=== PATIENT | male | born 1940 | race Caucasian/White ===

== ENCOUNTER 2018-04-17 06:13 | Inpatient (IN) ==
[2018-04-17] MEDS ORDERED: MAGNESIUM SULF RIDER 4 GM in PREMIX 1 EACH IV PRN (10:04)
[2018-04-17] MEDS ORDERED: ZALEPLON 5 MG CAPSULE PO PRN (10:04)
[2018-04-17] MEDS ORDERED: LACTULOSE 20 GM/30 ML UDCUP PO PRN (10:04)
[2018-04-17] MEDS ORDERED: DOCUSATE SODIUM 100 MG CAPSULE PO PRN (10:04)
[2018-04-17] MEDS ORDERED: MAGNESIUM SULF RIDER 2 GM in PREMIX 1 EACH IV PRN (10:04)
[2018-04-17] MEDS ORDERED: MORPHINE 4 MG/1 ML VIAL IV PRN (10:04)
[2018-04-17] MEDS ORDERED: POTASSIUM CHLORIDE RIDER 10 MEQ in PREMIX 1 EACH IV PRN (10:04)
[2018-04-17] MEDS ORDERED: BISACODYL 5 MG TABLET PO PRN (10:04)
[2018-04-17] MEDS ORDERED: NICOTINE 21 MG/24 HR PATCH TRANSDERM PRN (10:04)
[2018-04-17] MEDS ORDERED: ACETAMINOPHEN 325 MG TABLET PO PRN (10:04)
[2018-04-17] MEDS ORDERED: ONDANSETRON 4 MG/2 ML VIAL IV PRN (10:04)
[2018-04-17] MEDS ORDERED: diphenhydrAMINE CAP 25 MG CAPSULE PO PRN (10:04)
[2018-04-17] MEDS ORDERED: POTASSIUM CHLORIDE 20 MEQ TABLET PO PRN (10:19)
[2018-04-17] MEDS: NITROGLYCERIN SL 0.4 MG TABLET SL PRN ×2 (10:55→13:30)
[2018-04-17] MEDS: PANTOPRAZOLE 40 MG TABLET PO SCH (11:01)
[2018-04-17] MEDS ORDERED: GLUCAGON 1 MG VIAL IM PRN (13:11)
[2018-04-17] MEDS ORDERED: DEXTROSE 50% 25 GM/50 ML VIAL IV PRN (13:11)
[2018-04-17] MEDS: ENOXAPARIN 100 MG/ML SYRINGE SUBCUT SCH (14:32)
[2018-04-17] MEDS: DOBUTamine 500 MG/250 ML PREMIX IV SCH (14:32)
[2018-04-17] MEDS ORDERED: INSULIN REGULAR 100 UNIT/ML ONE (15:27)
[2018-04-17] MEDS: FUROSEMIDE 40 MG/4 ML VIAL IV SCH (15:53)
[2018-04-17] MEDS: INSULIN REGULAR 100 UNIT/ML SUBCUT SCH ×2 (15:53→22:33)
[2018-04-17] MEDS: NITROGLYCERIN 2% OINT 1 INCH/GM PACK TOP SCH ×2 (15:54→17:08)
[2018-04-17 20:35] LABS: Apearance,Urine CLEAR (Clear); Bilirubin,Urine Negative (Negative); Blood, Urine Negative (Negative); Glucose,Urine (UA) >=500 mg/dL (Negative); Ketones,Urine Negative (Negative); Mucus,Urine Many /LPF (Occasional); Nitrite,Urine Negative (Negative); Protein,Urine Negative; RBC,Urine 1 /HPF (0-4); Squamous Epithelial Cell,Urine Occasional /HPF (0-10); Urine Color Yellow (Yellow); Urine Specific Gravity 1.015 (1.001-1.035); WBC,Urine 1 /HPF (0-6)
[2018-04-17] MEDS: SACUBITRIL/VALSARTAN 49-51 MG TABLET PO SCH (22:27)
[2018-04-17] MEDS: DIGOXIN 0.125 MG TABLET PO SCH (22:28)
[2018-04-17] MEDS: POTASSIUM CHLORIDE 10 MEQ TABLET PO SCH (22:28)
[2018-04-17] MEDS: CARVEDILOL 6.25 MG TABLET PO SCH (22:29)
[2018-04-17] MEDS: MAGNESIUM OXIDE 400 MG TABLET PO SCH (22:33)
[2018-04-17] MEDS: amLODIPine 5 MG TABLET PO SCH (22:34)
[2018-04-17] MEDS: SIMVASTATIN 20 MG TABLET PO SCH (22:47)
[2018-04-17] MEDS: ASCORBIC ACID 500 MG TABLET PO SCH (22:47)
[2018-04-18] MEDS: NITROGLYCERIN 2% OINT 1 INCH/GM PACK TOP SCH ×4 (00:23→17:00)
[2018-04-18] MEDS: ENOXAPARIN 100 MG/ML SYRINGE SUBCUT SCH ×3 (03:26→22:37)
[2018-04-18 03:57] LABS: Basophils % 0.2 % (0.0-0.8); Hematocrit 41.7 VOL% (42.0-52.0); Hemoglobin 13.1 GM/DL (14.0-18.0); Immature Granulocytes % 1.3 %; Immature Granulocytes Absolute 0.23 #; Lymphocytes # 1.2 10*3/uL (1.4-4.0); Lymphocytes % 7.2 % (21.2-54.2); Mean Corpuscular HGB Conc 31.4 GM/DL (32-36); Mean Corpuscular Hemoglobin 29 PG (27-34); Mean Corpuscular Volume 92.7 FL (87-102); Mean Platelet Volume 10.4 FL (9.6-12.0); Monocytes # 1.1 10*3/uL (0.11-0.8); Monocytes % 6.2 % (1.7-12.7); Neutrophils # 14.5 10*3/uL (1.4-7.4); Neutrophils % 85.1 % (38.7-73.9); Platelet Count 175 T/CUMM (130-400)
[2018-04-18 04:24] LABS: Calcium 8.5 MG/DL (8.5-10.1); Potassium 3.9 MMOL/L (3.5-5.1); Risk Ratio 1.53; VLDL CHOLESTEROL 16.8 MG/DL
[2018-04-18] MEDS: DOBUTamine 500 MG/250 ML PREMIX IV SCH ×2 (05:11→12:27)
[2018-04-18] MEDS ORDERED: LOSARTAN 25 MG TABLET PO SCH (08:00)
[2018-04-18] MEDS: INSULIN REGULAR 100 UNIT/ML SUBCUT SCH ×4 (09:12→22:33)
[2018-04-18] MEDS: POTASSIUM CHLORIDE 10 MEQ TABLET PO SCH ×2 (09:13→22:29)
[2018-04-18] MEDS: ASPIRIN EC 81 MG TABLET PO SCH (09:13)
[2018-04-18] MEDS: CARVEDILOL 3.125 MG TABLET PO SCH (09:13)
[2018-04-18] MEDS: FUROSEMIDE 40 MG/4 ML VIAL IV SCH ×2 (09:13→16:59)
[2018-04-18] MEDS: SPIRONOLACTONE 25 MG TABLET PO SCH (09:14)
[2018-04-18] MEDS: ASCORBIC ACID 500 MG TABLET PO SCH ×2 (09:14→22:31)
[2018-04-18] MEDS: SACUBITRIL/VALSARTAN 49-51 MG TABLET PO SCH ×2 (09:14→22:32)
[2018-04-18] MEDS: PANTOPRAZOLE 40 MG TABLET PO SCH (09:15)
[2018-04-18] MEDS: MAGNESIUM OXIDE 400 MG TABLET PO SCH ×2 (09:15→22:32)
[2018-04-18] MEDS: LEVALBUTEROL 0.63 MG/3 ML NEB RESP TX SCH ×4 (10:40→22:44)
[2018-04-18] MEDS: LEVOFLOXACIN INJ 500 MG in PREMIX 1 EACH IV SCH (12:26)
[2018-04-18] MEDS ORDERED: FUROSEMIDE 20 MG/2 ML VIAL ONE (16:21)
[2018-04-18] MEDS: amLODIPine 5 MG TABLET PO SCH (22:30)
[2018-04-18] MEDS: CARVEDILOL 6.25 MG TABLET PO SCH (22:32)
[2018-04-18] MEDS: DIGOXIN 0.125 MG TABLET PO SCH (22:32)
[2018-04-18] MEDS: SIMVASTATIN 20 MG TABLET PO SCH (22:32)
[2018-04-19] MEDS: NITROGLYCERIN 2% OINT 1 INCH/GM PACK TOP SCH ×5 (00:53→23:58)
[2018-04-19] MEDS: LEVALBUTEROL 0.63 MG/3 ML NEB RESP TX SCH ×6 (02:19→23:24)
[2018-04-19 05:14] LABS: Basophils % 0.2 % (0.0-0.8); Hematocrit 42.2 VOL% (42.0-52.0); Hemoglobin 13.4 GM/DL (14.0-18.0); Immature Granulocytes % 1.7 %; Immature Granulocytes Absolute 0.28 #; Lymphocytes # 1.4 10*3/uL (1.4-4.0); Lymphocytes % 8.1 % (21.2-54.2); Mean Corpuscular HGB Conc 31.8 GM/DL (32-36); Mean Corpuscular Hemoglobin 29 PG (27-34); Mean Corpuscular Volume 92.3 FL (87-102); Mean Platelet Volume 10.6 FL (9.6-12.0); Monocytes # 1.1 10*3/uL (0.11-0.8); Monocytes % 6.7 % (1.7-12.7); Neutrophils % 83.3 % (38.7-73.9); Platelet Count 172 T/CUMM (130-400); Red Blood Count 4.57 MC/CUMM (3.8-5.5); Red Cell Distribution Width 15.3 % (9.3-17.3); White Blood Count 16.8 T/CUMM (4-12)
[2018-04-19 05:47] LABS: Calcium 8.7 MG/DL (8.5-10.1); Osmolality,Calculated 282.2 MOS/KG (273-304); Potassium 3.9 MMOL/L (3.5-5.1)
[2018-04-19 08:56] LABS: Albumin 2.8 G/DL (3.4-5.0); Bilirubin,Total 2.4 MG/DL (0.2-1.0); Calcium 8.6 MG/DL (8.5-10.1); Osmolality,Calculated 285.1 MOS/KG (273-304); Total Protein 7.1 G/DL (6.4-8.3)
[2018-04-19] MEDS: INSULIN REGULAR 100 UNIT/ML SUBCUT SCH ×4 (09:34→21:55)
[2018-04-19 10:26] LABS: Apearance,Urine Slightly Hazy (Clear); Bilirubin,Urine Negative (Negative); Blood, Urine Negative (Negative); Glucose,Urine (UA) 50 mg/dL (Negative); Ketones,Urine 5 mg/dL (Negative); Mucus,Urine Occasional /LPF (Occasional); Nitrite,Urine Negative (Negative); Protein,Urine 30 MG/DL; RBC,Urine 1 /HPF (0-4); Squamous Epithelial Cell,Urine Occasional /HPF (0-10); Urine Color Amber (Yellow); Urine Specific Gravity 1.023 (1.001-1.035); WBC,Urine 1 /HPF (0-6)
[2018-04-19] MEDS: ENOXAPARIN 100 MG/ML SYRINGE SUBCUT SCH ×2 (10:53→21:56)
[2018-04-19 12:14] LABS: Hepatitis A Ab IgM Quant 0.22 Index; Hepatitis A Ab IgM Result Negative (Negative); Hepatitis B Core IgM Quant 0.08 Index; Hepatitis B Core IgM Result Negative (Negative); Hepatitis B Surface Ag Quant < 0.10 Index; Hepatitis B Surface Ag Result Negative (Negative); Hepatitis C Virus Ab Quant 0.05 Index; Hepatitis C Virus Ab Result Negative (Negative)
[2018-04-19] MEDS: FUROSEMIDE 40 MG/4 ML VIAL IV SCH ×2 (12:26→18:38)
[2018-04-19] MEDS: PANTOPRAZOLE 40 MG TABLET PO SCH (15:52)
[2018-04-19] MEDS: MAGNESIUM OXIDE 400 MG TABLET PO SCH ×2 (15:52→21:55)
[2018-04-19] MEDS: POTASSIUM CHLORIDE 10 MEQ TABLET PO SCH ×2 (15:53→21:56)
[2018-04-19] MEDS: ASCORBIC ACID 500 MG TABLET PO SCH ×2 (15:53→21:56)
[2018-04-19] MEDS: SPIRONOLACTONE 25 MG TABLET PO SCH (15:53)
[2018-04-19] MEDS: CARVEDILOL 3.125 MG TABLET PO SCH (15:53)
[2018-04-19] MEDS: ASPIRIN EC 81 MG TABLET PO SCH (15:53)
[2018-04-19] MEDS: SACUBITRIL/VALSARTAN 49-51 MG TABLET PO SCH ×2 (15:57→21:56)
[2018-04-19] MEDS: LEVOFLOXACIN INJ 500 MG in PREMIX 1 EACH IV SCH (16:03)
[2018-04-19] MEDS: SIMVASTATIN 20 MG TABLET PO SCH (21:56)
[2018-04-19] MEDS: CARVEDILOL 6.25 MG TABLET PO SCH (21:56)
[2018-04-19] MEDS: DIGOXIN 0.125 MG TABLET PO SCH (21:56)
[2018-04-19] MEDS: amLODIPine 5 MG TABLET PO SCH (22:22)
[2018-04-20] MEDS: LEVALBUTEROL 0.63 MG/3 ML NEB RESP TX SCH ×6 (03:05→23:33)
[2018-04-20 04:24] LABS: Basophils % 0.1 % (0.0-0.8); Eosinophils % 0.1 % (0.00-10.9); Hematocrit 40.2 VOL% (42.0-52.0); Hemoglobin 12.6 GM/DL (14.0-18.0); Immature Granulocytes % 1.8 %; Immature Granulocytes Absolute 0.24 #; Lymphocytes # 1.3 10*3/uL (1.4-4.0); Lymphocytes % 9.8 % (21.2-54.2); Mean Corpuscular HGB Conc 31.3 GM/DL (32-36); Mean Corpuscular Hemoglobin 29 PG (27-34); Mean Corpuscular Volume 92.4 FL (87-102); Mean Platelet Volume 10.7 FL (9.6-12.0); Monocytes % 7.6 % (1.7-12.7); Neutrophils # 10.9 10*3/uL (1.4-7.4); Neutrophils % 80.6 % (38.7-73.9); Platelet Count 181 T/CUMM (130-400); Red Blood Count 4.35 MC/CUMM (3.8-5.5); Red Cell Distribution Width 15.3 % (9.3-17.3); White Blood Count 13.6 T/CUMM (4-12)
[2018-04-20 04:53] LABS: Calcium 8.5 MG/DL (8.5-10.1); Osmolality,Calculated 286.2 MOS/KG (273-304); Potassium 4.1 MMOL/L (3.5-5.1)
[2018-04-20 04:56] LABS: Albumin 2.5 G/DL (3.4-5.0); Bilirubin,Direct 0.6 MG/DL (0.0-0.20); Bilirubin,Indirect 0.8 MG/DL (0.0-1.0); Bilirubin,Total 1.4 MG/DL (0.2-1.0); Total Protein 7.1 G/DL (6.4-8.3)
[2018-04-20 05:26] LABS: Albumin 2.4 G/DL (3.4-5.0); Bilirubin,Total 1.2 MG/DL (0.2-1.0); Calcium 8.5 MG/DL (8.5-10.1); Osmolality,Calculated 283.4 MOS/KG (273-304); Potassium 4.1 MMOL/L (3.5-5.1)
[2018-04-20] MEDS: NITROGLYCERIN 2% OINT 1 INCH/GM PACK TOP SCH ×2 (06:22→11:39)
[2018-04-20] MEDS: ASPIRIN EC 81 MG TABLET PO SCH (09:50)
[2018-04-20] MEDS: FUROSEMIDE 40 MG/4 ML VIAL IV SCH ×2 (09:50→16:36)
[2018-04-20] MEDS: CARVEDILOL 3.125 MG TABLET PO SCH (09:50)
[2018-04-20] MEDS: ASCORBIC ACID 500 MG TABLET PO SCH ×2 (09:50→22:06)
[2018-04-20] MEDS: SPIRONOLACTONE 25 MG TABLET PO SCH (09:50)
[2018-04-20] MEDS: MAGNESIUM OXIDE 400 MG TABLET PO SCH ×2 (09:51→22:06)
[2018-04-20] MEDS: POTASSIUM CHLORIDE 10 MEQ TABLET PO SCH ×2 (09:51→22:06)
[2018-04-20] MEDS: INSULIN REGULAR 100 UNIT/ML SUBCUT SCH ×4 (09:51→22:08)
[2018-04-20] MEDS: PANTOPRAZOLE 40 MG TABLET PO SCH (09:51)
[2018-04-20] MEDS: SACUBITRIL/VALSARTAN 49-51 MG TABLET PO SCH ×2 (10:35→22:07)
[2018-04-20] MEDS: ENOXAPARIN 100 MG/ML SYRINGE SUBCUT SCH ×2 (10:41→22:08)
[2018-04-20] MEDS: LEVOFLOXACIN 500 MG TABLET PO SCH (12:22)
[2018-04-20] MEDS: CARVEDILOL 6.25 MG TABLET PO SCH (16:35)
[2018-04-20] MEDS: SIMVASTATIN 20 MG TABLET PO SCH (22:07)
[2018-04-20] MEDS: DIGOXIN 0.125 MG TABLET PO SCH (22:07)
[2018-04-21] MEDS: NITROGLYCERIN 2% OINT 1 INCH/GM PACK TOP SCH ×3 (01:03→11:57)
[2018-04-21] MEDS: LEVALBUTEROL 0.63 MG/3 ML NEB RESP TX SCH ×2 (03:45→07:10)
[2018-04-21 05:00] LABS: Basophils % 0.2 % (0.0-0.8); Eosinophils % 0.2 % (0.00-10.9); Hematocrit 40.9 VOL% (42.0-52.0); Hemoglobin 12.8 GM/DL (14.0-18.0); Immature Granulocytes % 0.8 %; Immature Granulocytes Absolute 0.11 #; Lymphocytes % 14.8 % (21.2-54.2); Mean Corpuscular HGB Conc 31.3 GM/DL (32-36); Mean Corpuscular Hemoglobin 29 PG (27-34); Mean Corpuscular Volume 91.7 FL (87-102); Mean Platelet Volume 10.3 FL (9.6-12.0); Monocytes # 1.2 10*3/uL (0.11-0.8); Monocytes % 8.7 % (1.7-12.7); Neutrophils # 10.3 10*3/uL (1.4-7.4); Neutrophils % 75.3 % (38.7-73.9); Platelet Count 203 T/CUMM (130-400); Red Blood Count 4.46 MC/CUMM (3.8-5.5); Red Cell Distribution Width 15.3 % (9.3-17.3); White Blood Count 13.6 T/CUMM (4-12)
[2018-04-21 05:24] LABS: Calcium 8.6 MG/DL (8.5-10.1); Osmolality,Calculated 282.8 MOS/KG (273-304)
[2018-04-21 05:28] LABS: Albumin 2.4 G/DL (3.4-5.0); Bilirubin,Total 1.2 MG/DL (0.2-1.0); Calcium 8.7 MG/DL (8.5-10.1); Potassium 4.1 MMOL/L (3.5-5.1); Total Protein 7.3 G/DL (6.4-8.3)
[2018-04-21] MEDS ORDERED: LEVALBUTEROL 0.63 MG/3 ML NEB RESP TX PRN (09:21)
[2018-04-21] MEDS: FUROSEMIDE 40 MG/4 ML VIAL IV SCH ×2 (09:53→16:40)
[2018-04-21] MEDS: POTASSIUM CHLORIDE 10 MEQ TABLET PO SCH ×2 (09:54→21:24)
[2018-04-21] MEDS: ASCORBIC ACID 500 MG TABLET PO SCH ×2 (09:54→21:21)
[2018-04-21] MEDS: PANTOPRAZOLE 40 MG TABLET PO SCH (09:55)
[2018-04-21] MEDS: ASPIRIN EC 81 MG TABLET PO SCH (09:55)
[2018-04-21] MEDS: CARVEDILOL 6.25 MG TABLET PO SCH ×2 (09:55→16:39)
[2018-04-21] MEDS: MAGNESIUM OXIDE 400 MG TABLET PO SCH ×2 (09:56→22:02)
[2018-04-21] MEDS: INSULIN REGULAR 100 UNIT/ML SUBCUT SCH ×4 (09:56→21:24)
[2018-04-21] MEDS: SPIRONOLACTONE 25 MG TABLET PO SCH (09:56)
[2018-04-21] MEDS: SACUBITRIL/VALSARTAN 49-51 MG TABLET PO SCH ×2 (09:57→21:21)
[2018-04-21] MEDS: ENOXAPARIN 100 MG/ML SYRINGE SUBCUT SCH ×2 (09:57→21:27)
[2018-04-21] MEDS: LEVOFLOXACIN 500 MG TABLET PO SCH (11:57)
[2018-04-21] MEDS: SIMVASTATIN 20 MG TABLET PO SCH (21:21)
[2018-04-21] MEDS: DIGOXIN 0.125 MG TABLET PO SCH (21:22)
[2018-04-22 05:08] LABS: Basophils # 0.1 10*3/uL (0.0-0.2); Basophils % 0.4 % (0.0-0.8); Eosinophils # 0.1 10*3/uL (0.0-0.87); Eosinophils % 0.5 % (0.00-10.9); Hematocrit 41.5 VOL% (42.0-52.0); Hemoglobin 12.7 GM/DL (14.0-18.0); Immature Granulocytes % 1.4 %; Mean Corpuscular HGB Conc 30.6 GM/DL (32-36); Mean Corpuscular Hemoglobin 29 PG (27-34); Mean Corpuscular Volume 93.3 FL (87-102); Mean Platelet Volume 10.5 FL (9.6-12.0); Monocytes # 1.3 10*3/uL (0.11-0.8); Monocytes % 9.4 % (1.7-12.7); Neutrophils # 10.4 10*3/uL (1.4-7.4); Neutrophils % 74.3 % (38.7-73.9); Platelet Count 212 T/CUMM (130-400); Red Blood Count 4.45 MC/CUMM (3.8-5.5); Red Cell Distribution Width 15.5 % (9.3-17.3)
[2018-04-22 05:31] LABS: Calcium 8.7 MG/DL (8.5-10.1); Potassium 4.1 MMOL/L (3.5-5.1)
[2018-04-22 05:37] LABS: Albumin 2.4 G/DL (3.4-5.0); Bilirubin,Total 1.3 MG/DL (0.2-1.0); Calcium 8.5 MG/DL (8.5-10.1); Potassium 4.1 MMOL/L (3.5-5.1); Total Protein 7.3 G/DL (6.4-8.3)
[2018-04-22] MEDS: NITROGLYCERIN 2% OINT 1 INCH/GM PACK TOP SCH ×4 (06:03→12:18)
[2018-04-22] MEDS: PANTOPRAZOLE 40 MG TABLET PO SCH (10:03)
[2018-04-22] MEDS: ASPIRIN EC 81 MG TABLET PO SCH (10:03)
[2018-04-22] MEDS: POTASSIUM CHLORIDE 10 MEQ TABLET PO SCH (10:05)
[2018-04-22] MEDS: ASCORBIC ACID 500 MG TABLET PO SCH (10:06)
[2018-04-22] MEDS: CARVEDILOL 6.25 MG TABLET PO SCH (10:07)
[2018-04-22] MEDS: MAGNESIUM OXIDE 400 MG TABLET PO SCH (10:07)
[2018-04-22] MEDS: SACUBITRIL/VALSARTAN 49-51 MG TABLET PO SCH (10:07)
[2018-04-22] MEDS: SPIRONOLACTONE 25 MG TABLET PO SCH (10:07)
[2018-04-22] MEDS: FUROSEMIDE 40 MG/4 ML VIAL IV SCH (10:09)
[2018-04-22] MEDS: INSULIN REGULAR 100 UNIT/ML SUBCUT SCH ×2 (10:13→11:25)
[2018-04-22] MEDS: ENOXAPARIN 100 MG/ML SYRINGE SUBCUT SCH (10:14)
[2018-04-22 11:41] VITALS: BP 144/67
[2018-04-22] MEDS: LEVOFLOXACIN 500 MG TABLET PO SCH (12:18)
== END 2018-04-22 13:30 | disposition home or self-care (01) | DRG 445 ==
LOC: N.TELES
PROVIDERS: ADMIT Internal Medicine Interventional Cardiology; ATTEND Internal Medicine Interventional Cardiology

== ENCOUNTER 2020-02-08 16:43 | Inpatient (IN) ==
[2020-02-08] MEDS ORDERED: HYDROmorphone 2 MG/1 ML VIAL IV STA (17:22)
[2020-02-08] MEDS ORDERED: PANTOPRAZOLE 40 MG VIAL IV STA (17:22)
[2020-02-08] MEDS ORDERED: SODIUM CHLORIDE 0.9% 500 ML IV STA ×3 (17:22→21:02)
[2020-02-08] MEDS ORDERED: ONDANSETRON 4 MG/2 ML VIAL IV STA (17:22)
[2020-02-08 17:38] LABS: Eosinophils % 0.5 % (0.00-10.9); Hematocrit 35.4 VOL% (42.0-52.0); Hemoglobin 11.2 GM/DL (14.0-18.0); Immature Granulocytes % 0.3 %; Immature Granulocytes Absolute 0.02 #; Lymphocytes # 0.5 10*3/uL (1.4-4.0); Lymphocytes % 7.8 % (21.2-54.2); Mean Corpuscular HGB Conc 31.6 GM/DL (32-36); Mean Platelet Volume 10.2 FL (9.6-12.0); Monocytes % 1.9 % (1.7-12.7); Neutrophils % 89.5 % (38.7-73.9); Platelet Count 142 T/CUMM (130-400); Red Blood Count 3.89 MC/CUMM (3.8-5.5); Red Cell Distribution Width 15.9 % (9.3-17.3); White Blood Count 6.3 T/CUMM (4-12)
[2020-02-08 17:46] LABS: Bacteria,Urine Occasional /HPF (Few); Bilirubin,Urine Negative (Negative); Blood, Urine Negative (Negative); Glucose,Urine (UA) Negative (Negative); Hyaline Casts,Urine 11 /LPF (0-3); Ketones,Urine Negative (Negative); Mucus,Urine Occasional /LPF (Occasional); Nitrite,Urine Negative (Negative); Protein,Urine Negative; RBC,Urine <1 /HPF (0-4); Squamous Epithelial Cell,Urine Occasional /HPF (0-10); Urine Appearance CLEAR (Clear); Urine Color Yellow (Yellow); Urine Urobilinogen < 2.0 EU/DL (0.2-1.0); WBC,Urine 1 /HPF (0-6)
[2020-02-08 18:00] LABS: Alanine Aminotransferase 108 U/L (16-61); Albumin 3.5 G/DL (3.4-5.0); Alkaline Phosphatase 120 U/L (45-117); Amylase 42 U/L (25-115); Aspartate Amino Transferase 82 U/L (0-37); Blood Urea Nitrogen 85 MG/DL (7-18); Calcium 10.3 MG/DL (8.5-10.1); Estimated Glom Filtration Rate 14 ML/MIN; Glucose 122 MG/DL (74-106); Osmolality,Calculated 288.7 MOS/KG (273-304); Total Protein 8.3 G/DL (6.4-8.3)
[2020-02-08] MEDS ORDERED: PIPERACILLIN/TAZOBACTAM 2,250 MG in SODIUM CHLORIDE 0.9% 100 ML IV STA (19:19)
[2020-02-08] MEDS ORDERED: HYDROmorphone 2 MG/1 ML VIAL IV ONE (19:25)
[2020-02-08] MEDS ORDERED: ONDANSETRON 4 MG/2 ML VIAL IV PRN (20:44)
[2020-02-08] MEDS ORDERED: DEXTROSE 50% 25 GM/50 ML VIAL IV PRN (20:44)
[2020-02-08] MEDS ORDERED: GLUCAGON 1 MG VIAL IM PRN (20:44)
[2020-02-08] MEDS ORDERED: SODIUM CHLORIDE 0.9% 1,000 ML IV SCH (21:00)
[2020-02-08] MEDS ORDERED: HYDROmorphone 2 MG/1 ML VIAL IM PRN (21:08)
[2020-02-08] MEDS: INSULIN LISPRO 100 UNIT/ML SUBCUT SCH (23:28)
[2020-02-09] MEDS ORDERED: PIPERACILLIN/TAZOBACTAM 3,375 MG in SODIUM CHLORIDE 0.9% 100 ML IV SCH (04:00)
[2020-02-09 04:18] LABS: Basophils % 0.1 % (0.0-0.8); Hematocrit 31.3 VOL% (42.0-52.0); Hemoglobin 9.5 GM/DL (14.0-18.0); Immature Granulocytes Absolute 0.07 #; Lymphocytes # 0.6 10*3/uL (1.4-4.0); Lymphocytes % 8.7 % (21.2-54.2); Mean Corpuscular HGB Conc 30.4 GM/DL (32-36); Mean Corpuscular Volume 92.1 FL (87-102); Mean Platelet Volume 10.5 FL (9.6-12.0); Monocytes % 7.4 % (1.7-12.7); Neutrophils % 82.8 % (38.7-73.9); Platelet Count 102 T/CUMM (130-400); Red Cell Distribution Width 15.9 % (9.3-17.3); White Blood Count 6.8 T/CUMM (4-12)
[2020-02-09 04:24] LABS: Alanine Aminotransferase 81 U/L (16-61); Albumin 2.8 G/DL (3.4-5.0); Alkaline Phosphatase 113 U/L (45-117); Aspartate Amino Transferase 62 U/L (0-37); Blood Urea Nitrogen 96 MG/DL (7-18); Calcium 9.1 MG/DL (8.5-10.1); Estimated Glom Filtration Rate 13 ML/MIN; Glucose 163 MG/DL (74-106); Osmolality,Calculated 301.2 MOS/KG (273-304); Thyroid Stimulating Hormone < 0.005 uIU/ml (0.358-3.74); Total Protein 6.7 G/DL (6.4-8.3)
[2020-02-09] MEDS: INSULIN LISPRO 100 UNIT/ML SUBCUT SCH ×4 (05:37→23:36)
[2020-02-09] MEDS ORDERED: HYDROmorphone 2 MG/1 ML VIAL IV PRN (09:00)
[2020-02-09] MEDS: carvediloL 3.125 MG TABLET PO SCH ×2 (10:47→21:15)
[2020-02-09] MEDS: ASPIRIN EC 81 MG TABLET PO SCH (10:47)
[2020-02-09] MEDS: PANTOPRAZOLE 40 MG TABLET PO SCH (10:47)
[2020-02-09] MEDS: CHOLECALCIFEROL 1,000 UNIT TABLET PO SCH (10:47)
[2020-02-09] MEDS: metroNIDAZOLE INJ 500 MG in PREMIX 1 EACH IV SCH ×3 (11:32→23:36)
[2020-02-09] MEDS: cefTAZidime 1,000 MG in SYRINGE 1 EACH IV SCH (11:32)
[2020-02-10 05:18] LABS: Basophils % 0.2 % (0.0-0.8); Eosinophils # 0.1 10*3/uL (0.0-0.87); Eosinophils % 1.3 % (0.00-10.9); Hematocrit 30.9 VOL% (42.0-52.0); Hemoglobin 9.7 GM/DL (14.0-18.0); Immature Granulocytes % 0.9 %; Immature Granulocytes Absolute 0.05 #; Lymphocytes # 0.9 10*3/uL (1.4-4.0); Lymphocytes % 17.3 % (21.2-54.2); Mean Corpuscular HGB Conc 31.4 GM/DL (32-36); Mean Corpuscular Volume 89.8 FL (87-102); Mean Platelet Volume 10.5 FL (9.6-12.0); Monocytes % 11.7 % (1.7-12.7); Neutrophils % 68.6 % (38.7-73.9); Platelet Count 129 T/CUMM (130-400); Red Blood Count 3.44 MC/CUMM (3.8-5.5); Red Cell Distribution Width 15.7 % (9.3-17.3); White Blood Count 5.4 T/CUMM (4-12)
[2020-02-10 05:49] LABS: Albumin 2.8 G/DL (3.4-5.0); Bilirubin,Total 4.6 MG/DL (0.2-1.0); Calcium 9.6 MG/DL (8.5-10.1); Osmolality,Calculated 313.3 MOS/KG (273-304); Total Protein 6.4 G/DL (6.4-8.3)
[2020-02-10] MEDS: INSULIN LISPRO 100 UNIT/ML SUBCUT SCH ×3 (05:57→18:11)
[2020-02-10] MEDS: metroNIDAZOLE INJ 500 MG in PREMIX 1 EACH IV SCH ×3 (06:08→18:11)
[2020-02-10] MEDS: CHOLECALCIFEROL 1,000 UNIT TABLET PO SCH (08:07)
[2020-02-10] MEDS: ASPIRIN EC 81 MG TABLET PO SCH (08:07)
[2020-02-10] MEDS: carvediloL 3.125 MG TABLET PO SCH ×2 (08:07→21:24)
[2020-02-10] MEDS: PANTOPRAZOLE 40 MG TABLET PO SCH (08:07)
[2020-02-10] MEDS: cefTAZidime 1,000 MG in SYRINGE 1 EACH IV SCH (09:23)
[2020-02-10] MEDS ORDERED: SODIUM CHLORIDE 0.9% 1,000 ML IV SCH (10:00)
[2020-02-11] MEDS: metroNIDAZOLE INJ 500 MG in PREMIX 1 EACH IV SCH ×4 (00:28→17:15)
[2020-02-11] MEDS: INSULIN LISPRO 100 UNIT/ML SUBCUT SCH ×4 (00:30→17:35)
[2020-02-11 06:08] LABS: Basophils % 0.2 % (0.0-0.8); Eosinophils # 0.1 10*3/uL (0.0-0.87); Eosinophils % 2.4 % (0.00-10.9); Hematocrit 29.8 VOL% (42.0-52.0); Hemoglobin 9.7 GM/DL (14.0-18.0); Immature Granulocytes % 0.4 %; Immature Granulocytes Absolute 0.02 #; Mean Corpuscular HGB Conc 32.6 GM/DL (32-36); Mean Corpuscular Volume 87.6 FL (87-102); Mean Platelet Volume 10.5 FL (9.6-12.0); Monocytes % 9.7 % (1.7-12.7); Neutrophils % 66.3 % (38.7-73.9); Platelet Count 133 T/CUMM (130-400); Red Cell Distribution Width 15.4 % (9.3-17.3); White Blood Count 4.5 T/CUMM (4-12)
[2020-02-11 06:16] LABS: INR 1.1; PT Patient Result 11.8 SECS (9.8-11.9)
[2020-02-11 06:47] LABS: Albumin 2.4 G/DL (3.4-5.0); Bilirubin,Total 1.9 MG/DL (0.2-1.0); Calcium 9.5 MG/DL (8.5-10.1); Osmolality,Calculated 306.1 MOS/KG (273-304); Total Protein 6.7 G/DL (6.4-8.3)
[2020-02-11] MEDS ORDERED: INDOMETHACIN SUPP 50 MG SUPP RECTAL ONE (08:00)
[2020-02-11] MEDS ORDERED: SODIUM CHLORIDE 0.9% 1,000 ML IV SCH (08:00)
[2020-02-11] MEDS ORDERED: HEPARIN/NACL 0.9% 2 UNITS/ML 500 ML IV ONE (09:17)
[2020-02-11] MEDS: ASPIRIN EC 81 MG TABLET PO SCH (09:33)
[2020-02-11] MEDS: carvediloL 3.125 MG TABLET PO SCH ×2 (09:33→20:25)
[2020-02-11] MEDS: PANTOPRAZOLE 40 MG TABLET PO SCH (09:33)
[2020-02-11] MEDS: CHOLECALCIFEROL 1,000 UNIT TABLET PO SCH (09:34)
[2020-02-11] MEDS ORDERED: MIDAZOLAM 2 MG/2 ML VIAL ONE (11:03)
[2020-02-11] MEDS ORDERED: fentaNYL 100 MCG/2 ML VIAL ONE (11:04)
[2020-02-11] MEDS ORDERED: ONDANSETRON 4 MG/2 ML VIAL ONE (12:30)
[2020-02-11] MEDS ORDERED: LIDOCAINE 2% 5 ML VIAL ONE (12:30)
[2020-02-11] MEDS ORDERED: ROCURONIUM 50 MG/5 ML VIAL IV ONE (12:30)
[2020-02-11] MEDS ORDERED: ETOMIDATE 40 MG/20 ML VIAL IV ONE (12:30)
[2020-02-11] MEDS ORDERED: SUCCINYLCHOLINE 200 MG/10 ML VIAL ONE (12:30)
[2020-02-11] MEDS ORDERED: SUGAMMADEX 200 MG/2 ML VIAL IV ONE (13:15)
[2020-02-11] MEDS: cefTAZidime 1,000 MG in SYRINGE 1 EACH IV SCH (14:48)
[2020-02-12] MEDS: metroNIDAZOLE INJ 500 MG in PREMIX 1 EACH IV SCH ×4 (00:17→13:01)
[2020-02-12] MEDS: INSULIN LISPRO 100 UNIT/ML SUBCUT SCH ×3 (00:22→13:01)
[2020-02-12] MEDS ORDERED: INDOCYANINE GREEN 25 MG VIAL IV ONE (10:00)
[2020-02-12] MEDS: CHOLECALCIFEROL 1,000 UNIT TABLET PO SCH (10:42)
[2020-02-12] MEDS: ASPIRIN EC 81 MG TABLET PO SCH (10:42)
[2020-02-12] MEDS: carvediloL 3.125 MG TABLET PO SCH (10:42)
[2020-02-12] MEDS: PANTOPRAZOLE 40 MG TABLET PO SCH (10:43)
[2020-02-12] MEDS: cefTAZidime 1,000 MG in SYRINGE 1 EACH IV SCH (10:44)
[2020-02-12 14:34] LABS: Basophils % 0.4 % (0.0-0.8); Eosinophils # 0.1 10*3/uL (0.0-0.87); Eosinophils % 2.2 % (0.00-10.9); Hematocrit 31.4 VOL% (42.0-52.0); Hemoglobin 9.6 GM/DL (14.0-18.0); Immature Granulocytes % 0.6 %; Immature Granulocytes Absolute 0.03 #; Lymphocytes % 20.3 % (21.2-54.2); Mean Corpuscular HGB Conc 30.6 GM/DL (32-36); Mean Corpuscular Volume 91.5 FL (87-102); Mean Platelet Volume 10.2 FL (9.6-12.0); Monocytes % 9.7 % (1.7-12.7); Neutrophils % 66.8 % (38.7-73.9); Platelet Count 150 T/CUMM (130-400); Red Blood Count 3.43 MC/CUMM (3.8-5.5); Red Cell Distribution Width 15.6 % (9.3-17.3); White Blood Count 5.1 T/CUMM (4-12)
[2020-02-12 14:52] LABS: Albumin 2.5 G/DL (3.4-5.0); Bilirubin,Total 1.2 MG/DL (0.2-1.0); Calcium 8.8 MG/DL (8.5-10.1); Osmolality,Calculated 301.3 MOS/KG (273-304); Total Protein 6.4 G/DL (6.4-8.3)
[2020-02-12 15:55] VITALS: BP 108/69
== END 2020-02-12 16:03 | DRG 445 ==
LOC: N.ED 16:43 → N.EDINP 22:29 → SUATTDRO 22:29 → N.ICU 23:10 → N.5E 02-10 14:43
PROVIDERS: ADMIT Internal Medicine; ATTEND Internal Medicine

== ENCOUNTER 2020-02-13 23:38 | Inpatient (IN) ==
[2020-02-14] MEDS ORDERED: MAGNESIUM SULF RIDER 4 GM in PREMIX 1 EACH IV PRN (00:40)
[2020-02-14] MEDS ORDERED: MAGNESIUM SULF RIDER 2 GM in PREMIX 1 EACH IV PRN (00:40)
[2020-02-14] MEDS ORDERED: ONDANSETRON 4 MG/2 ML VIAL IV PRN (00:40)
[2020-02-14] MEDS ORDERED: NITROGLYCERIN SL 0.4 MG TABLET SL PRN (00:43)
[2020-02-14] MEDS ORDERED: GLUCAGON 1 MG VIAL IM PRN (00:46)
[2020-02-14] MEDS ORDERED: DEXTROSE 50% 25 GM/50 ML VIAL IV PRN ×2 (00:46→09:16)
[2020-02-14] MEDS ORDERED: DILTIAZEM CD 120 MG CAPSULE PO STA (01:56)
[2020-02-14 03:52] LABS: Basophils % 0.4 % (0.0-0.8); Eosinophils # 0.1 10*3/uL (0.0-0.87); Eosinophils % 0.6 % (0.00-10.9); Hematocrit 35.7 VOL% (42.0-52.0); Hemoglobin 10.7 GM/DL (14.0-18.0); Immature Granulocytes % 2.1 %; Immature Granulocytes Absolute 0.21 #; Lymphocytes # 1.7 10*3/uL (1.4-4.0); Lymphocytes % 16.9 % (21.2-54.2); Mean Platelet Volume 10.1 FL (9.6-12.0); Monocytes % 8.6 % (1.7-12.7); Neutrophils % 71.4 % (38.7-73.9); Platelet Count 216 T/CUMM (130-400); Red Blood Count 3.88 MC/CUMM (3.8-5.5); Red Cell Distribution Width 15.6 % (9.3-17.3); White Blood Count 10.2 T/CUMM (4-12)
[2020-02-14] MEDS: ZALEPLON 5 MG CAPSULE PO PRN ×2 (04:09→21:01)
[2020-02-14] MEDS: dilTIAZem Drip 125 MG/125 ML PREMIX IV SCH ×3 (04:22→23:42)
[2020-02-14 04:47] LABS: Albumin 2.8 G/DL (3.4-5.0); Osmolality,Calculated 289.7 MOS/KG (273-304); Potassium 4.8 MMOL/L (3.5-5.1); Total Protein 7.1 G/DL (6.4-8.3)
[2020-02-14] MEDS ORDERED: DIAZEPAM 5 MG TABLET PO ONE (06:13)
[2020-02-14] MEDS ORDERED: diphenhydrAMINE CAP 50 MG CAPSULE PO ONE (06:13)
[2020-02-14] MEDS ORDERED: diphenhydrAMINE CAP 25 MG CAPSULE ONE (06:55)
[2020-02-14] MEDS ORDERED: MIDAZOLAM 2 MG/2 ML VIAL ONE (08:20)
[2020-02-14] MEDS ORDERED: fentaNYL 100 MCG/2 ML VIAL ONE (08:20)
[2020-02-14] MEDS ORDERED: LIDOCAINE 1% 20 ML VIAL ONE (08:20)
[2020-02-14] MEDS ORDERED: HEPARIN/NACL 0.9% 2 UNITS/ML 1,000 ML IV ONE (08:20)
[2020-02-14] MEDS ORDERED: HEPARIN 5,000 UNIT/1 ML VIAL ONE (08:54)
[2020-02-14] MEDS: INSULIN REGULAR 100 UNIT/ML SUBCUT SCH ×4 (09:06→21:02)
[2020-02-14] MEDS ORDERED: LORazepam 1 MG TABLET PO PRN (09:17)
[2020-02-14] MEDS: carvediloL 6.25 MG TABLET PO SCH ×2 (10:15→21:01)
[2020-02-14] MEDS: DOCUSATE SODIUM 100 MG CAPSULE PO SCH ×2 (10:15→21:01)
[2020-02-14] MEDS: ASPIRIN EC 81 MG TABLET PO SCH (10:15)
[2020-02-14] MEDS: SODIUM CHLORIDE 0.9% 1,000 ML IV SCH ×2 (10:15→16:09)
[2020-02-14] MEDS: FENOFIBRATE 145 MG TABLET PO SCH (10:16)
[2020-02-14] MEDS: ASCORBIC ACID 500 MG TABLET PO SCH ×2 (10:16→21:01)
[2020-02-14] MEDS: CEFDINIR 300 MG CAPSULE PO SCH ×2 (10:16→21:01)
[2020-02-14] MEDS: APIXABAN 5 MG TABLET PO SCH ×2 (10:16→21:01)
[2020-02-14] MEDS: CHOLECALCIFEROL 1,000 UNIT TABLET PO SCH (10:16)
[2020-02-14] MEDS: PANTOPRAZOLE 40 MG TABLET PO SCH (10:16)
[2020-02-14] MEDS: MAGNESIUM OXIDE 400 MG TABLET PO SCH ×2 (10:16→21:01)
[2020-02-14] MEDS: metroNIDAZOLE 500 MG TABLET PO SCH ×3 (10:16→21:01)
[2020-02-14] MEDS ORDERED: SIMVASTATIN 20 MG TABLET PO SCH (21:00)
[2020-02-14] MEDS: INSULIN GLARGINE 100 UNIT/ML SUBCUT SCH (21:02)
[2020-02-15] MEDS: SODIUM CHLORIDE 0.9% 1,000 ML IV SCH ×2 (05:21→15:22)
[2020-02-15 05:52] LABS: Basophils % 0.3 % (0.0-0.8); Eosinophils # 0.2 10*3/uL (0.0-0.87); Eosinophils % 2.6 % (0.00-10.9); Hematocrit 32.1 VOL% (42.0-52.0); Hemoglobin 9.9 GM/DL (14.0-18.0); Immature Granulocytes Absolute 0.08 #; Lymphocytes # 1.5 10*3/uL (1.4-4.0); Lymphocytes % 19.2 % (21.2-54.2); Mean Corpuscular HGB Conc 30.8 GM/DL (32-36); Mean Corpuscular Volume 91.7 FL (87-102); Mean Platelet Volume 9.4 FL (9.6-12.0); Monocytes % 9.1 % (1.7-12.7); Neutrophils % 67.8 % (38.7-73.9); Platelet Count 184 T/CUMM (130-400); White Blood Count 7.7 T/CUMM (4-12)
[2020-02-15 06:17] LABS: Calcium 8.8 MG/DL (8.5-10.1)
[2020-02-15] MEDS: INSULIN REGULAR 100 UNIT/ML SUBCUT SCH ×4 (08:34→20:46)
[2020-02-15] MEDS: CHOLECALCIFEROL 1,000 UNIT TABLET PO SCH (08:36)
[2020-02-15] MEDS: MAGNESIUM OXIDE 400 MG TABLET PO SCH ×2 (08:36→20:42)
[2020-02-15] MEDS ORDERED: AMIODARONE INJ 150 MG in DEXTROSE 5% 100 ML IV ONE (08:36)
[2020-02-15] MEDS: FENOFIBRATE 145 MG TABLET PO SCH (08:36)
[2020-02-15] MEDS: PANTOPRAZOLE 40 MG TABLET PO SCH (08:36)
[2020-02-15] MEDS: ASPIRIN EC 81 MG TABLET PO SCH (08:37)
[2020-02-15] MEDS: metroNIDAZOLE 500 MG TABLET PO SCH ×3 (08:37→20:44)
[2020-02-15] MEDS: carvediloL 6.25 MG TABLET PO SCH (08:37)
[2020-02-15] MEDS: DOCUSATE SODIUM 100 MG CAPSULE PO SCH ×2 (08:37→20:43)
[2020-02-15] MEDS: ASCORBIC ACID 500 MG TABLET PO SCH ×2 (08:37→20:43)
[2020-02-15] MEDS: CEFDINIR 300 MG CAPSULE PO SCH ×2 (08:38→20:44)
[2020-02-15] MEDS: APIXABAN 5 MG TABLET PO SCH ×2 (08:38→20:44)
[2020-02-15] MEDS: carvediloL 12.5 MG TABLET PO SCH ×2 (08:51→20:43)
[2020-02-15] MEDS: dilTIAZem Drip 125 MG/125 ML PREMIX IV SCH (08:58)
[2020-02-15] MEDS ORDERED: AMIODARONE INJ 450 MG in DEXTROSE 5% 241 ML IV SCH (09:00)
[2020-02-15] MEDS: AMIODARONE INJ 450 MG in DEXTROSE 5% 241 ML IV SCH (15:23)
[2020-02-15] MEDS: ZALEPLON 5 MG CAPSULE PO PRN (20:43)
[2020-02-15] MEDS: INSULIN GLARGINE 100 UNIT/ML SUBCUT SCH (20:45)
[2020-02-15] MEDS ORDERED: ALUM/MAG/SIMETH/LIDO VISC 1:1 30 ML BOTTLE PO ONE (21:23)
[2020-02-16] MEDS: SODIUM CHLORIDE 0.9% 1,000 ML IV SCH (01:17)
[2020-02-16 06:24] LABS: Basophils % 0.4 % (0.0-0.8); Eosinophils # 0.2 10*3/uL (0.0-0.87); Eosinophils % 1.8 % (0.00-10.9); Hemoglobin 9.9 GM/DL (14.0-18.0); Immature Granulocytes % 1.1 %; Immature Granulocytes Absolute 0.09 #; Lymphocytes # 1.8 10*3/uL (1.4-4.0); Lymphocytes % 22.4 % (21.2-54.2); Mean Corpuscular HGB Conc 30.9 GM/DL (32-36); Mean Corpuscular Volume 90.7 FL (87-102); Mean Platelet Volume 9.7 FL (9.6-12.0); Monocytes % 8.8 % (1.7-12.7); Neutrophils % 65.5 % (38.7-73.9); Platelet Count 228 T/CUMM (130-400); Red Blood Count 3.53 MC/CUMM (3.8-5.5); Red Cell Distribution Width 15.9 % (9.3-17.3); White Blood Count 8.2 T/CUMM (4-12)
[2020-02-16 06:46] LABS: Calcium 8.8 MG/DL (8.5-10.1); Osmolality,Calculated 292.8 MOS/KG (273-304)
[2020-02-16] MEDS: AMIODARONE INJ 450 MG in DEXTROSE 5% 241 ML IV SCH (07:00)
[2020-02-16 09:33] LABS: Free T4 (Free Thyroxine) 1.41 NG/DL (0.76-1.46); Thyroid Stimulating Hormone 0.052 uIU/ml (0.358-3.74)
[2020-02-16] MEDS: AMIODARONE 200 MG TABLET PO SCH ×2 (10:10→20:45)
[2020-02-16] MEDS: PANTOPRAZOLE 40 MG TABLET PO SCH (10:10)
[2020-02-16] MEDS: FENOFIBRATE 145 MG TABLET PO SCH (10:10)
[2020-02-16] MEDS: carvediloL 12.5 MG TABLET PO SCH ×2 (10:10→20:46)
[2020-02-16] MEDS: DOCUSATE SODIUM 100 MG CAPSULE PO SCH ×2 (10:10→20:45)
[2020-02-16] MEDS: APIXABAN 5 MG TABLET PO SCH ×2 (10:10→20:46)
[2020-02-16] MEDS: ASCORBIC ACID 500 MG TABLET PO SCH ×2 (10:10→20:46)
[2020-02-16] MEDS: INSULIN REGULAR 100 UNIT/ML SUBCUT SCH ×4 (10:11→20:43)
[2020-02-16] MEDS: ASPIRIN EC 81 MG TABLET PO SCH (10:11)
[2020-02-16] MEDS: CHOLECALCIFEROL 1,000 UNIT TABLET PO SCH (10:11)
[2020-02-16] MEDS: metroNIDAZOLE 500 MG TABLET PO SCH ×3 (10:11→20:46)
[2020-02-16] MEDS: CEFDINIR 300 MG CAPSULE PO SCH ×2 (10:17→20:45)
[2020-02-16] MEDS: MAGNESIUM OXIDE 400 MG TABLET PO SCH ×2 (10:39→20:43)
[2020-02-16] MEDS: INSULIN GLARGINE 100 UNIT/ML SUBCUT SCH (20:46)
[2020-02-16] MEDS: ZALEPLON 5 MG CAPSULE PO PRN (20:46)
[2020-02-17 06:37] LABS: Basophils % 0.4 % (0.0-0.8); Eosinophils # 0.1 10*3/uL (0.0-0.87); Eosinophils % 1.8 % (0.00-10.9); Hematocrit 31.5 VOL% (42.0-52.0); Hemoglobin 9.8 GM/DL (14.0-18.0); Immature Granulocytes Absolute 0.07 #; Lymphocytes # 1.8 10*3/uL (1.4-4.0); Lymphocytes % 25.6 % (21.2-54.2); Mean Corpuscular HGB Conc 31.1 GM/DL (32-36); Mean Corpuscular Volume 91.3 FL (87-102); Mean Platelet Volume 9.4 FL (9.6-12.0); Monocytes % 8.1 % (1.7-12.7); Neutrophils % 63.1 % (38.7-73.9); Platelet Count 223 T/CUMM (130-400); Red Blood Count 3.45 MC/CUMM (3.8-5.5); Red Cell Distribution Width 16.1 % (9.3-17.3); White Blood Count 7.2 T/CUMM (4-12)
[2020-02-17 07:12] LABS: Calcium 8.8 MG/DL (8.5-10.1); Osmolality,Calculated 287.1 MOS/KG (273-304); Potassium 3.9 MMOL/L (3.5-5.1)
[2020-02-17] MEDS: INSULIN REGULAR 100 UNIT/ML SUBCUT SCH ×4 (08:21→22:05)
[2020-02-17] MEDS: CHOLECALCIFEROL 1,000 UNIT TABLET PO SCH (09:05)
[2020-02-17] MEDS: DOCUSATE SODIUM 100 MG CAPSULE PO SCH ×2 (09:05→22:03)
[2020-02-17] MEDS: APIXABAN 5 MG TABLET PO SCH ×2 (09:06→22:03)
[2020-02-17] MEDS: carvediloL 12.5 MG TABLET PO SCH ×2 (09:06→22:03)
[2020-02-17] MEDS: metroNIDAZOLE 500 MG TABLET PO SCH ×3 (09:06→22:03)
[2020-02-17] MEDS: CEFDINIR 300 MG CAPSULE PO SCH ×2 (09:06→22:01)
[2020-02-17] MEDS: FENOFIBRATE 145 MG TABLET PO SCH (09:07)
[2020-02-17] MEDS: PANTOPRAZOLE 40 MG TABLET PO SCH (09:07)
[2020-02-17] MEDS: ASPIRIN EC 81 MG TABLET PO SCH (09:07)
[2020-02-17] MEDS: AMIODARONE 200 MG TABLET PO SCH (09:07)
[2020-02-17] MEDS: ASCORBIC ACID 500 MG TABLET PO SCH ×2 (09:07→22:03)
[2020-02-17] MEDS: MAGNESIUM OXIDE 400 MG TABLET PO SCH ×2 (09:07→22:01)
[2020-02-17] MEDS: MEXILETINE 150 MG CAPSULE PO SCH (22:03)
[2020-02-17] MEDS: ZALEPLON 5 MG CAPSULE PO PRN (22:03)
[2020-02-17] MEDS: INSULIN GLARGINE 100 UNIT/ML SUBCUT SCH (22:05)
[2020-02-18 05:31] LABS: Basophils % 0.4 % (0.0-0.8); Eosinophils # 0.2 10*3/uL (0.0-0.87); Eosinophils % 2.6 % (0.00-10.9); Hemoglobin 9.4 GM/DL (14.0-18.0); Immature Granulocytes % 0.7 %; Immature Granulocytes Absolute 0.05 #; Lymphocytes # 1.7 10*3/uL (1.4-4.0); Lymphocytes % 22.8 % (21.2-54.2); Mean Corpuscular HGB Conc 31.3 GM/DL (32-36); Mean Corpuscular Volume 90.4 FL (87-102); Mean Platelet Volume 9.6 FL (9.6-12.0); Monocytes % 7.7 % (1.7-12.7); Neutrophils % 65.8 % (38.7-73.9); Platelet Count 231 T/CUMM (130-400); Red Blood Count 3.32 MC/CUMM (3.8-5.5); Red Cell Distribution Width 16.1 % (9.3-17.3); White Blood Count 7.3 T/CUMM (4-12)
[2020-02-18 06:46] LABS: Calcium 8.6 MG/DL (8.5-10.1); Potassium 3.7 MMOL/L (3.5-5.1)
[2020-02-18] MEDS: INSULIN REGULAR 100 UNIT/ML SUBCUT SCH ×4 (08:29→21:58)
[2020-02-18] MEDS: ASCORBIC ACID 500 MG TABLET PO SCH ×2 (08:31→21:46)
[2020-02-18] MEDS: MEXILETINE 150 MG CAPSULE PO SCH ×2 (08:31→21:46)
[2020-02-18] MEDS: ASPIRIN EC 81 MG TABLET PO SCH (08:31)
[2020-02-18] MEDS: CEFDINIR 300 MG CAPSULE PO SCH ×2 (08:32→21:46)
[2020-02-18] MEDS: APIXABAN 5 MG TABLET PO SCH ×2 (08:32→21:47)
[2020-02-18] MEDS: carvediloL 12.5 MG TABLET PO SCH ×2 (08:32→21:45)
[2020-02-18] MEDS: MAGNESIUM OXIDE 400 MG TABLET PO SCH ×2 (08:32→21:46)
[2020-02-18] MEDS: CHOLECALCIFEROL 1,000 UNIT TABLET PO SCH (08:32)
[2020-02-18] MEDS: metroNIDAZOLE 500 MG TABLET PO SCH ×3 (08:33→21:46)
[2020-02-18] MEDS: PANTOPRAZOLE 40 MG TABLET PO SCH (08:33)
[2020-02-18] MEDS: DOCUSATE SODIUM 100 MG CAPSULE PO SCH ×2 (08:34→21:46)
[2020-02-18] MEDS: FENOFIBRATE 145 MG TABLET PO SCH (08:34)
[2020-02-18] MEDS: INSULIN GLARGINE 100 UNIT/ML SUBCUT SCH (21:59)
[2020-02-19 06:07] LABS: Basophils # 0.1 10*3/uL (0.0-0.2); Basophils % 0.7 % (0.0-0.8); Eosinophils # 0.2 10*3/uL (0.0-0.87); Eosinophils % 2.1 % (0.00-10.9); Hematocrit 31.9 VOL% (42.0-52.0); Immature Granulocytes % 0.5 %; Immature Granulocytes Absolute 0.04 #; Lymphocytes # 1.9 10*3/uL (1.4-4.0); Lymphocytes % 24.9 % (21.2-54.2); Mean Corpuscular HGB Conc 31.3 GM/DL (32-36); Mean Corpuscular Volume 90.9 FL (87-102); Neutrophils % 63.8 % (38.7-73.9); Platelet Count 243 T/CUMM (130-400); Red Blood Count 3.51 MC/CUMM (3.8-5.5); Red Cell Distribution Width 16.2 % (9.3-17.3); White Blood Count 7.5 T/CUMM (4-12)
[2020-02-19 06:14] LABS: Calcium 8.8 MG/DL (8.5-10.1); Potassium 3.9 MMOL/L (3.5-5.1)
[2020-02-19] MEDS: INSULIN REGULAR 100 UNIT/ML SUBCUT SCH ×2 (08:20→12:36)
[2020-02-19] MEDS: ASCORBIC ACID 500 MG TABLET PO SCH (08:36)
[2020-02-19] MEDS: CEFDINIR 300 MG CAPSULE PO SCH (08:36)
[2020-02-19] MEDS: CHOLECALCIFEROL 1,000 UNIT TABLET PO SCH (08:36)
[2020-02-19] MEDS: MAGNESIUM OXIDE 400 MG TABLET PO SCH (08:36)
[2020-02-19] MEDS: PANTOPRAZOLE 40 MG TABLET PO SCH (08:36)
[2020-02-19] MEDS: carvediloL 12.5 MG TABLET PO SCH (08:37)
[2020-02-19] MEDS: metroNIDAZOLE 500 MG TABLET PO SCH (08:37)
[2020-02-19] MEDS: ASPIRIN EC 81 MG TABLET PO SCH (08:37)
[2020-02-19] MEDS: DOCUSATE SODIUM 100 MG CAPSULE PO SCH (08:37)
[2020-02-19] MEDS: MEXILETINE 150 MG CAPSULE PO SCH (08:37)
[2020-02-19] MEDS: FENOFIBRATE 145 MG TABLET PO SCH (08:37)
[2020-02-19] MEDS: APIXABAN 5 MG TABLET PO SCH (08:37)
[2020-02-19 09:04] VITALS: BP 144/64
== END 2020-02-19 15:00 | disposition home or self-care (01) | DRG 287 ==
LOC: EDUNIT# → EDBD → N.ED 23:38 → N.EDINP 02-14 00:40 → N.TELEN 02-14 02:44
PROVIDERS: ADMIT Internal Medicine Cardiovascular Disease; ATTEND Internal Medicine Cardiovascular Disease
PROC: CLCCHCL (ICD-10-PCS; 2020-02-14 08:45)

== ENCOUNTER 2021-01-12 12:15 | Inpatient (IN) ==
[2021-01-12] MEDS ORDERED: DILTIAZEM 50 MG/10 ML VIAL IV STA (12:35)
[2021-01-12] MEDS ORDERED: DILTIAZEM 100 MG VIAL.ADD IV ONE (12:38)
[2021-01-12 12:58] LABS: Basophils # 0.1 10*3/uL (0.0-0.2); Basophils % 0.6 % (0.0-0.8); Eosinophils # 0.2 10*3/uL (0.0-0.87); Eosinophils % 1.3 % (0.00-10.9); Hematocrit 42.8 VOL% (42.0-52.0); Immature Granulocytes % 0.8 %; Lymphocytes # 2.5 10*3/uL (1.4-4.0); Lymphocytes % 20.1 % (21.2-54.2); Mean Corpuscular HGB Conc 32.7 GM/DL (32-36); Mean Corpuscular Volume 92.4 FL (87-102); Mean Platelet Volume 10.6 FL (9.6-12.0); Monocytes % 9.8 % (1.7-12.7); Neutrophils % 67.4 % (38.7-73.9); Platelet Count 242 T/CUMM (130-400); Red Blood Count 4.63 MC/CUMM (3.8-5.5); Red Cell Distribution Width 15.4 % (9.3-17.3); White Blood Count 12.5 T/CUMM (4-12)
[2021-01-12] MEDS: DILTIAZEM INJ 100 MG in SODIUM CHLORIDE 0.9% 100 ML IV SCH (13:08)
[2021-01-12 13:09] LABS: INR 1.1; PT Patient Result 12.8 SECS (10.5-12.0); Partial Thromboplastin Time 30.1 SECS (23.8-32.1)
[2021-01-12] MEDS ORDERED: ONDANSETRON 4 MG/2 ML VIAL ONE (13:11)
[2021-01-12] MEDS ORDERED: LIDOCAINE 100 MG/5 ML SYRINGE IV STA (13:13)
[2021-01-12] MEDS ORDERED: AMIODARONE 150 MG/3 ML VIAL ONE ×2 (13:20→13:40)
[2021-01-12] MEDS ORDERED: ZALEPLON 5 MG CAPSULE PO PRN (13:28)
[2021-01-12] MEDS ORDERED: MAGNESIUM SULF RIDER 2 GM/50 ML PREMIX IV PRN (13:28)
[2021-01-12] MEDS ORDERED: DOCUSATE SODIUM 100 MG CAPSULE PO PRN (13:28)
[2021-01-12] MEDS ORDERED: ALUMINUM/MAGNES/SIMETH MAX STR 30 ML UDCUP PO PRN (13:28)
[2021-01-12] MEDS ORDERED: ACETAMINOPHEN 325 MG TABLET PO PRN (13:28)
[2021-01-12] MEDS ORDERED: hydrALAZINE 20 MG/1 ML VIAL IV PRN (13:28)
[2021-01-12] MEDS ORDERED: MORPHINE 2 MG/1 ML SYRINGE IV PRN (13:28)
[2021-01-12] MEDS ORDERED: ONDANSETRON 4 MG/2 ML VIAL IV PRN (13:28)
[2021-01-12] MEDS ORDERED: POTASSIUM CHLORIDE 20 MEQ TABLET PO PRN (13:28)
[2021-01-12] MEDS ORDERED: MAGNESIUM SULF RIDER 4 GM/100 ML PREMIX IV PRN (13:28)
[2021-01-12] MEDS ORDERED: diphenhydrAMINE CAP 25 MG CAPSULE PO PRN (13:28)
[2021-01-12] MEDS ORDERED: guaiFENesin/DM ER 600-30 MG TABLET PO PRN (13:28)
[2021-01-12] MEDS ORDERED: LIDOCAINE DRIP 2,000 MG/250 ML PREMIX IV SCH (13:30)
[2021-01-12] MEDS ORDERED: ONDANSETRON 4 MG/2 ML VIAL IV STA (13:41)
[2021-01-12] MEDS ORDERED: AMIODARONE INJ 150 MG in DEXTROSE 5% 100 ML IV ONE ×2 (13:42→13:44)
[2021-01-12 13:45] LABS: Albumin 4.2 G/DL (3.4-5.0); Bilirubin,Total 0.6 MG/DL (0.20-1.00); Calcium 10.4 MG/DL (8.5-10.1); Osmolality,Calculated 293.4 MOS/KG (273-304); Potassium 4.2 MMOL/L (3.5-5.1); Thyroid Stimulating Hormone 4.23 uIU/ml (0.358-3.74); Total Protein 7.8 G/DL (6.4-8.2)
[2021-01-12] MEDS ORDERED: propofoL 200 MG/20 ML VIAL IV ONE (13:52)
[2021-01-12] MEDS ORDERED: NITROGLYCERIN SL 0.4 MG TABLET SL PRN (13:55)
[2021-01-12] MEDS ORDERED: DIGOXIN 0.125 MG TABLET PO SCH (14:00)
[2021-01-12] MEDS ORDERED: AMIODARONE INJ 450 MG in DEXTROSE 5% 241 ML IV SCH (14:00)
[2021-01-12] MEDS ORDERED: SODIUM CHLORIDE 0.9% 2,000 ML IV STA (14:15)
[2021-01-12] MEDS ORDERED: SODIUM CHLORIDE 0.9% 500 ML IV STA (14:16)
[2021-01-12] MEDS ORDERED: propofoL 200 MG/20 ML VIAL IV STA (14:20)
[2021-01-12] MEDS ORDERED: LIDOCAINE 100 MG/5 ML SYRINGE IV ONE (14:25)
[2021-01-12] MEDS: METOPROLOL TARTRATE 25 MG TABLET PO SCH ×2 (15:53→21:41)
[2021-01-12] MEDS: [UNRECOGNIZED DRUG - OTHER] SUBCUT SCH (16:13)
[2021-01-12] MEDS: methIMAzole 5 MG TABLET PO SCH (16:13)
[2021-01-12] MEDS: INSULIN LISPRO 100 UNIT/ML SUBCUT SCH ×2 (16:18→21:38)
[2021-01-12] MEDS: SODIUM CHLORIDE 0.9% 1,000 ML IV SCH (16:36)
[2021-01-12 16:42] LABS: Bilirubin,Urine Negative (Negative); Blood, Urine Negative (Negative); Glucose,Urine (UA) >=500 mg/dL (Negative); Hyaline Casts,Urine 62 /LPF (0-3); Ketones,Urine Negative (Negative); Mucus,Urine Occasional /LPF (Occasional); Nitrite,Urine Negative (Negative); Protein,Urine 30 MG/DL; RBC,Urine 5 /HPF (0-4); Squamous Epithelial Cell,Urine Occasional /HPF (0-10); Urine Appearance CLEAR (Clear); Urine Color Yellow (Yellow); Urine Specific Gravity 1.011 (1.001-1.035)
[2021-01-12 18:12] LABS: Barbiturates Screen,Urine Negative (Negative); Benzodiazepines Screen,Urine Negative (Negative); Cannabinoid Screen,Urine Negative (Negative); Opiate Screen,Urine Negative (Negative); Phencyclidine Screen,Urine Negative (Negative)
[2021-01-12] MEDS: INSULIN GLARGINE 100 UNIT/ML SUBCUT SCH (21:38)
[2021-01-12] MEDS: ASCORBIC ACID 500 MG TABLET PO SCH (21:40)
[2021-01-12] MEDS: MEXILETINE 150 MG CAPSULE PO SCH (21:40)
[2021-01-12] MEDS: APIXABAN 5 MG TABLET PO SCH (21:40)
[2021-01-12] MEDS: POTASSIUM CHLORIDE 10 MEQ TABLET PO SCH (21:41)
[2021-01-13] MEDS: SODIUM CHLORIDE 0.9% 1,000 ML IV SCH ×2 (05:57→22:50)
[2021-01-13 06:33] LABS: Basophils % 0.3 % (0.0-0.8); Eosinophils # 0.1 10*3/uL (0.0-0.87); Eosinophils % 1.2 % (0.00-10.9); Hematocrit 36.6 VOL% (42.0-52.0); Hemoglobin 12.1 GM/DL (14.0-18.0); Immature Granulocytes % 0.4 %; Immature Granulocytes Absolute 0.04 #; Lymphocytes % 21.7 % (21.2-54.2); Mean Corpuscular HGB Conc 33.1 GM/DL (32-36); Mean Corpuscular Volume 92.4 FL (87-102); Mean Platelet Volume 10.7 FL (9.6-12.0); Monocytes % 8.1 % (1.7-12.7); Neutrophils % 68.3 % (38.7-73.9); Platelet Count 176 T/CUMM (130-400); Red Blood Count 3.96 MC/CUMM (3.8-5.5); Red Cell Distribution Width 15.9 % (9.3-17.3); White Blood Count 9.1 T/CUMM (4-12)
[2021-01-13] MEDS: METOPROLOL TARTRATE 25 MG TABLET PO SCH ×3 (06:56→21:45)
[2021-01-13 06:57] LABS: Albumin 3.2 G/DL (3.4-5.0); Bilirubin,Total 1.1 MG/DL (0.20-1.00); Osmolality,Calculated 292.7 MOS/KG (273-304); Potassium 3.9 MMOL/L (3.5-5.1); Total Protein 6.4 G/DL (6.4-8.2)
[2021-01-13] MEDS: INSULIN LISPRO 100 UNIT/ML SUBCUT SCH ×4 (07:36→21:46)
[2021-01-13] MEDS ORDERED: PANTOPRAZOLE 40 MG TABLET PO SCH (09:00)
[2021-01-13] MEDS: [UNRECOGNIZED DRUG - OTHER] SUBCUT SCH ×3 (09:12→16:19)
[2021-01-13] MEDS: ASPIRIN EC 81 MG TABLET PO SCH (09:59)
[2021-01-13] MEDS: POTASSIUM CHLORIDE 10 MEQ TABLET PO SCH ×2 (09:59→21:45)
[2021-01-13] MEDS: APIXABAN 5 MG TABLET PO SCH ×2 (09:59→21:45)
[2021-01-13] MEDS: ASCORBIC ACID 500 MG TABLET PO SCH ×2 (09:59→21:45)
[2021-01-13] MEDS: CHOLECALCIFEROL 1,000 UNIT TABLET PO SCH (09:59)
[2021-01-13] MEDS: SPIRONOLACTONE 25 MG TABLET PO SCH (09:59)
[2021-01-13] MEDS: MEXILETINE 150 MG CAPSULE PO SCH ×2 (09:59→21:45)
[2021-01-13] MEDS: PANTOPRAZOLE 40 MG TABLET PO SCH (09:59)
[2021-01-13] MEDS: DILTIAZEM INJ 100 MG in SODIUM CHLORIDE 0.9% 100 ML IV SCH (12:04)
[2021-01-13] MEDS: FENOFIBRATE 145 MG TABLET PO SCH (12:09)
[2021-01-13 15:57] LABS: Barbiturates Screen,Urine Negative (Negative); Benzodiazepines Screen,Urine Negative (Negative); Cannabinoid Screen,Urine Negative (Negative); Opiate Screen,Urine Negative (Negative); Phencyclidine Screen,Urine Negative (Negative)
[2021-01-13] MEDS: INSULIN GLARGINE 100 UNIT/ML SUBCUT SCH (21:45)
[2021-01-14] MEDS: SODIUM CHLORIDE 0.9% 1,000 ML IV SCH ×2 (02:01→05:48)
[2021-01-14] MEDS: METOPROLOL TARTRATE 25 MG TABLET PO SCH (05:45)
[2021-01-14 05:52] LABS: Basophils % 0.5 % (0.0-0.8); Eosinophils # 0.1 10*3/uL (0.0-0.87); Eosinophils % 0.8 % (0.00-10.9); Hematocrit 35.8 VOL% (42.0-52.0); Hemoglobin 11.1 GM/DL (14.0-18.0); Immature Granulocytes % 0.7 %; Immature Granulocytes Absolute 0.06 #; Lymphocytes # 1.9 10*3/uL (1.4-4.0); Lymphocytes % 22.2 % (21.2-54.2); Mean Corpuscular Volume 94.5 FL (87-102); Monocytes % 11.1 % (1.7-12.7); Neutrophils % 64.7 % (38.7-73.9); Platelet Count 164 T/CUMM (130-400); Red Blood Count 3.79 MC/CUMM (3.8-5.5); Red Cell Distribution Width 15.9 % (9.3-17.3); White Blood Count 8.5 T/CUMM (4-12)
[2021-01-14 06:15] LABS: Calcium 9.3 MG/DL (8.5-10.1); Osmolality,Calculated 291.5 MOS/KG (273-304); Potassium 3.9 MMOL/L (3.5-5.1)
[2021-01-14] MEDS: INSULIN LISPRO 100 UNIT/ML SUBCUT SCH ×2 (08:17→11:05)
[2021-01-14 08:21] VITALS: BP 93/45
[2021-01-14] MEDS: [UNRECOGNIZED DRUG - OTHER] SUBCUT SCH ×2 (09:42→11:05)
[2021-01-14] MEDS: CHOLECALCIFEROL 1,000 UNIT TABLET PO SCH (09:43)
[2021-01-14] MEDS: PANTOPRAZOLE 40 MG TABLET PO SCH (09:44)
[2021-01-14] MEDS: POTASSIUM CHLORIDE 10 MEQ TABLET PO SCH (09:44)
[2021-01-14] MEDS: SPIRONOLACTONE 25 MG TABLET PO SCH (09:44)
[2021-01-14] MEDS: APIXABAN 5 MG TABLET PO SCH (09:44)
[2021-01-14] MEDS: ASCORBIC ACID 500 MG TABLET PO SCH (09:44)
[2021-01-14] MEDS: methIMAzole 5 MG TABLET PO SCH (09:44)
[2021-01-14] MEDS: MEXILETINE 150 MG CAPSULE PO SCH (09:44)
[2021-01-14] MEDS: ASPIRIN EC 81 MG TABLET PO SCH (09:44)
[2021-01-14] MEDS: FENOFIBRATE 145 MG TABLET PO SCH (11:06)
[2021-01-14] MEDS ORDERED: FUROSEMIDE 40 MG TABLET PO SCH (16:00)
== END 2021-01-14 11:25 | disposition home or self-care (01) | DRG 309 ==
LOC: N.ED 12:15 → N.EDINP 13:27 → N.CC 15:13 → N.TELES 18:02
PROVIDERS: ADMIT Internal Medicine Interventional Cardiology; ATTEND Internal Medicine Interventional Cardiology

== ENCOUNTER 2021-07-06 23:41 | Inpatient (IN) ==
[2021-07-07] MEDS ORDERED: ONDANSETRON 4 MG/2 ML VIAL IV STA (00:14)
[2021-07-07] MEDS ORDERED: FUROSEMIDE 40 MG/4 ML VIAL IV STA (00:14)
[2021-07-07 00:53] LABS: Basophils % 0.2 % (0.0-0.8); Eosinophils % 0.1 % (0.00-10.9); Hematocrit 42.1 VOL% (42.0-52.0); Hemoglobin 13.2 GM/DL (14.0-18.0); Immature Granulocytes % 0.8 %; Immature Granulocytes Absolute 0.11 #; Lymphocytes # 1.3 10*3/uL (1.4-4.0); Lymphocytes % 10.3 % (21.2-54.2); Mean Corpuscular HGB Conc 31.4 GM/DL (32-36); Mean Corpuscular Volume 96.1 FL (87-102); Mean Platelet Volume 10.5 FL (9.6-12.0); Monocytes # 1.1 10*3/uL (0.11-0.8); Monocytes % 8.7 % (1.7-12.7); NRBC # 0.02 10*3/uL; Neutrophils % 79.9 % (38.7-73.9); Platelet Count 280 T/CUMM (130-400); Red Blood Count 4.38 MC/CUMM (3.8-5.5); Red Cell Distribution Width 16.5 % (9.3-17.3)
[2021-07-07 01:21] LABS: Albumin 3.4 G/DL (3.4-5.0); Bilirubin,Total 3.2 MG/DL (0.20-1.00); Calcium 9.6 MG/DL (8.5-10.1); Potassium 5.4 MMOL/L (3.5-5.1); Total Protein 6.9 G/DL (6.4-8.2)
[2021-07-07 01:30] LABS: Free T4 (Free Thyroxine) 2.13 NG/DL (0.76-1.46)
[2021-07-07] MEDS ORDERED: SODIUM CHLORIDE 0.9% 1,000 ML IV STA (01:32)
[2021-07-07] MEDS ORDERED: PIPERACILLIN/TAZOBACTAM 2,250 MG in SODIUM CHLORIDE 0.9% 100 ML IV STA (01:42)
[2021-07-07] MEDS ORDERED: PIPERACILLIN/TAZOBACTAM 3,375 MG in SODIUM CHLORIDE 0.9% 100 ML IV STA (01:44)
[2021-07-07 01:49] LABS: Arterial PO2 iSTAT 85 MM HG (80-95)
[2021-07-07 01:52] LABS: INR 2.5
[2021-07-07 01:53] LABS: PT Patient Result 26.3 SECS (10.5-12.0)
[2021-07-07 02:21] LABS: Arterial Base Excess iSTAT -9 MMOL/L (-2.5-2.5); Arterial O2 Saturation iSTAT 95 % (95-100); Arterial PCO2 iSTAT 24 MM HG (35-48); Arterial PO2 iSTAT 74 MM HG (80-95); Arterial Total CO2 iSTAT 15 MMO/L (23-27); Arterial pH iSTAT 7.379 (7.35-7.45)
[2021-07-07] MEDS ORDERED: ONDANSETRON 4 MG/2 ML VIAL IV PRN (03:03)
[2021-07-07] MEDS ORDERED: DEXTROSE 50% 25 GM/50 ML VIAL IV PRN (03:03)
[2021-07-07] MEDS ORDERED: GLUCAGON 1 MG VIAL IM PRN (03:03)
[2021-07-07] MEDS ORDERED: ACETAMINOPHEN 325 MG TABLET PO PRN (03:03)
[2021-07-07] MEDS ORDERED: MAGNESIUM SULF RIDER 2 GM/50 ML PREMIX IV PRN (03:11)
[2021-07-07] MEDS ORDERED: MAGNESIUM SULF RIDER 4 GM/100 ML PREMIX IV PRN (03:11)
[2021-07-07] MEDS ORDERED: DEXTROSE 10% 250 ML BAG IV PRN (04:18)
[2021-07-07] MEDS ORDERED: SODIUM CHLORIDE 0.9% 1,000 ML IV SCH (04:30)
[2021-07-07] MEDS ORDERED: INSULIN REGULAR 10 UNIT, CALCIUM GLUCONATE 1,000 MG in DEXTROSE 10% 250 ML IV ONE (05:00)
[2021-07-07] MEDS: SODIUM BICARBONATE 50 MEQ/50 ML VIAL IV SCH ×2 (05:07→12:36)
[2021-07-07 07:45] LABS: Bilirubin,Urine Negative (Negative); Glucose,Urine (UA) Negative (Negative); Hyaline Casts,Urine 310 /LPF (0-3); Ketones,Urine Negative (Negative); Mucus,Urine Few /LPF (Occasional); Nitrite,Urine Negative (Negative); Protein,Urine Negative (Negative); RBC,Urine <1 /HPF (0-4); Squamous Epithelial Cell,Urine Occasional /HPF (0-10); Urine Appearance Clear (Clear); Urine Color Yellow (Yellow)
[2021-07-07 07:46] LABS: Blood, Urine Negative (Negative)
[2021-07-07 08:00] LABS: Basophils % 0.1 % (0.0-0.8); Hematocrit 39.6 VOL% (42.0-52.0); Hemoglobin 12.2 GM/DL (14.0-18.0); Immature Granulocytes Absolute 0.12 #; Lymphocytes # 1.4 10*3/uL (1.4-4.0); Lymphocytes % 11.6 % (21.2-54.2); Mean Corpuscular HGB Conc 30.8 GM/DL (32-36); Mean Corpuscular Volume 97.3 FL (87-102); Mean Platelet Volume 10.4 FL (9.6-12.0); Monocytes # 1.2 10*3/uL (0.11-0.8); Monocytes % 10.1 % (1.7-12.7); NRBC # 0.03 10*3/uL; Neutrophils % 77.2 % (38.7-73.9); Platelet Count 222 T/CUMM (130-400); Red Blood Count 4.07 MC/CUMM (3.8-5.5); Red Cell Distribution Width 16.6 % (9.3-17.3)
[2021-07-07] MEDS ORDERED: FUROSEMIDE 40 MG/4 ML VIAL IV SCH ×2 (08:00→16:00)
[2021-07-07] MEDS: ASCORBIC ACID 500 MG TABLET PO SCH (08:27)
[2021-07-07] MEDS: methIMAzole 5 MG TABLET PO SCH (08:27)
[2021-07-07] MEDS: ASPIRIN EC 81 MG TABLET PO SCH (08:27)
[2021-07-07] MEDS: APIXABAN 5 MG TABLET PO SCH ×2 (08:29→21:22)
[2021-07-07] MEDS: PANTOPRAZOLE 40 MG TABLET PO SCH (08:29)
[2021-07-07] MEDS: MEXILETINE 150 MG CAPSULE PO SCH ×2 (08:29→21:22)
[2021-07-07] MEDS: INSULIN REGULAR 100 UNIT/ML SUBCUT SCH ×4 (08:31→22:28)
[2021-07-07] MEDS: PIPERACILLIN/TAZOBACTAM 3,375 MG in SODIUM CHLORIDE 0.9% 100 ML IV SCH ×2 (08:31→22:28)
[2021-07-07] MEDS: METOPROLOL SUCCINATE XL 25 MG TABLET PO SCH (08:36)
[2021-07-07] MEDS: CHOLECALCIFEROL 1,000 UNIT TABLET PO SCH (08:36)
[2021-07-07] MEDS ORDERED: ROSUVASTATIN 20 MG TABLET PO SCH (09:00)
[2021-07-07] MEDS ORDERED: SPIRONOLACTONE 25 MG TABLET PO SCH (09:00)
[2021-07-07] MEDS ORDERED: AMIODARONE 200 MG TABLET PO SCH (09:00)
[2021-07-07] MEDS ORDERED: FUROSEMIDE 20 MG TABLET PO SCH (09:00)
[2021-07-07 09:44] LABS: Albumin 2.9 G/DL (3.4-5.0); Bilirubin,Direct 1.86 MG/DL (0.0-0.20); Bilirubin,Indirect 0.7 MG/DL (0.0-1.0); Bilirubin,Total 2.6 MG/DL (0.20-1.00); Calcium 8.7 MG/DL (8.5-10.1); Osmolality,Calculated 303.5 MOS/KG (273-304); Potassium 4.6 MMOL/L (3.5-5.1); Total Protein 5.9 G/DL (6.4-8.2)
[2021-07-07] MEDS ORDERED: SODIUM POLYSTYRENE SULFATE 15 GM/60 ML BOTTLE PO ONE (09:55)
[2021-07-07] MEDS: LACTULOSE 20 GM/30 ML UDCUP PO SCH ×2 (10:03→21:22)
[2021-07-07] MEDS ORDERED: DOBUTamine 500 MG/250 ML PREMIX IV PRN (11:24)
[2021-07-07] MEDS: SODIUM CHLORIDE 0.9% 1,000 ML IV SCH (11:47)
[2021-07-07 12:58] LABS: Hepatitis B Core IgM Quant 0.17 Index; Hepatitis B Surface Ag Quant < 0.10 Index; Hepatitis B Surface Ag Result Non-Reactive (NonReactive); Hepatitis C Virus Ab Quant 0.08 Index; Hepatitis C Virus Ab Result Non-Reactive (NonReactive)
[2021-07-07] MEDS ORDERED: MORPHINE 2 MG/1 ML SYRINGE IV PRN (14:06)
[2021-07-07] MEDS: DOBUTamine 500 MG/250 ML PREMIX IV SCH (16:46)
[2021-07-07] MEDS ORDERED: METOPROLOL TARTRATE 50 MG TABLET PO SCH (21:00)
[2021-07-08] MEDS: PIPERACILLIN/TAZOBACTAM 3,375 MG in SODIUM CHLORIDE 0.9% 100 ML IV SCH ×2 (01:16→08:50)
[2021-07-08 04:51] LABS: Basophils % 0.2 % (0.0-0.8); Eosinophils % 0.6 % (0.00-10.9); Hematocrit 35.5 VOL% (42.0-52.0); Hemoglobin 11.1 GM/DL (14.0-18.0); Immature Granulocytes % 0.6 %; Immature Granulocytes Absolute 0.04 #; Lymphocytes # 0.8 10*3/uL (1.4-4.0); Lymphocytes % 12.4 % (21.2-54.2); Mean Corpuscular HGB Conc 31.3 GM/DL (32-36); Mean Corpuscular Volume 95.9 FL (87-102); Mean Platelet Volume 10.2 FL (9.6-12.0); Monocytes # 0.6 10*3/uL (0.11-0.8); Monocytes % 9.6 % (1.7-12.7); Neutrophils % 76.6 % (38.7-73.9); Platelet Count 172 T/CUMM (130-400); Red Cell Distribution Width 16.5 % (9.3-17.3); White Blood Count 6.6 T/CUMM (4-12)
[2021-07-08 05:20] LABS: Albumin 2.7 G/DL (3.4-5.0); Bilirubin,Direct 0.78 MG/DL (0.0-0.20); Bilirubin,Indirect 0.5 MG/DL (0.0-1.0); Bilirubin,Total 1.3 MG/DL (0.20-1.00); Calcium 8.5 MG/DL (8.5-10.1); Osmolality,Calculated 304.4 MOS/KG (273-304); Potassium 3.6 MMOL/L (3.5-5.1)
[2021-07-08 05:23] LABS: Lactic Acid 1.2 MMOL/L (0.4-2.0)
[2021-07-08] MEDS: SODIUM CHLORIDE 0.9% 1,000 ML IV SCH (08:09)
[2021-07-08] MEDS: DOBUTamine 500 MG/250 ML PREMIX IV SCH (10:08)
[2021-07-08] MEDS: ASCORBIC ACID 500 MG TABLET PO SCH (10:25)
[2021-07-08] MEDS: CHOLECALCIFEROL 1,000 UNIT TABLET PO SCH (10:25)
[2021-07-08] MEDS: PANTOPRAZOLE 40 MG TABLET PO SCH (10:25)
[2021-07-08] MEDS: AMIODARONE 200 MG TABLET PO SCH (10:25)
[2021-07-08] MEDS: MEXILETINE 150 MG CAPSULE PO SCH ×2 (10:25→20:16)
[2021-07-08] MEDS: APIXABAN 5 MG TABLET PO SCH ×2 (10:26→20:16)
[2021-07-08] MEDS: methIMAzole 5 MG TABLET PO SCH (10:26)
[2021-07-08] MEDS: METOPROLOL SUCCINATE XL 25 MG TABLET PO SCH (10:26)
[2021-07-08] MEDS: ASPIRIN EC 81 MG TABLET PO SCH (10:26)
[2021-07-08] MEDS: LACTULOSE 20 GM/30 ML UDCUP PO SCH ×2 (10:27→20:17)
[2021-07-08] MEDS: INSULIN REGULAR 100 UNIT/ML SUBCUT SCH ×4 (10:36→20:17)
[2021-07-08] MEDS: INSULIN GLARGINE 100 UNIT/ML SUBCUT SCH (20:17)
[2021-07-09] MEDS: DOBUTamine 500 MG/250 ML PREMIX IV SCH ×2 (03:42→18:38)
[2021-07-09 04:45] LABS: Basophils % 0.2 % (0.0-0.8); Eosinophils # 0.1 10*3/uL (0.0-0.87); Eosinophils % 1.3 % (0.00-10.9); Hematocrit 33.6 VOL% (42.0-52.0); Hemoglobin 10.5 GM/DL (14.0-18.0); Immature Granulocytes % 0.7 %; Immature Granulocytes Absolute 0.04 #; Lymphocytes # 0.7 10*3/uL (1.4-4.0); Lymphocytes % 12.7 % (21.2-54.2); Mean Corpuscular HGB Conc 31.3 GM/DL (32-36); Monocytes # 0.6 10*3/uL (0.11-0.8); Monocytes % 10.1 % (1.7-12.7); Platelet Count 152 T/CUMM (130-400); Red Cell Distribution Width 16.4 % (9.3-17.3); White Blood Count 5.5 T/CUMM (4-12)
[2021-07-09 05:07] LABS: Calcium 8.7 MG/DL (8.5-10.1); Osmolality,Calculated 298.3 MOS/KG (273-304); Potassium 3.4 MMOL/L (3.5-5.1)
[2021-07-09 05:11] LABS: Albumin 2.4 G/DL (3.4-5.0); Bilirubin,Direct 0.46 MG/DL (0.0-0.20); Bilirubin,Indirect 0.6 MG/DL (0.0-1.0); Bilirubin,Total 1.1 MG/DL (0.20-1.00); Total Protein 5.8 G/DL (6.4-8.2)
[2021-07-09] MEDS: INSULIN REGULAR 100 UNIT/ML SUBCUT SCH ×4 (10:07→20:47)
[2021-07-09] MEDS: MEXILETINE 150 MG CAPSULE PO SCH ×2 (10:08→20:46)
[2021-07-09] MEDS: PANTOPRAZOLE 40 MG TABLET PO SCH (10:08)
[2021-07-09] MEDS: AMIODARONE 200 MG TABLET PO SCH (10:08)
[2021-07-09] MEDS: APIXABAN 5 MG TABLET PO SCH ×2 (10:08→20:46)
[2021-07-09] MEDS: methIMAzole 5 MG TABLET PO SCH (10:09)
[2021-07-09] MEDS: CHOLECALCIFEROL 1,000 UNIT TABLET PO SCH (10:09)
[2021-07-09] MEDS: LACTULOSE 20 GM/30 ML UDCUP PO SCH ×2 (10:10→20:48)
[2021-07-09] MEDS: METOPROLOL SUCCINATE XL 25 MG TABLET PO SCH (10:10)
[2021-07-09] MEDS: ASCORBIC ACID 500 MG TABLET PO SCH (10:10)
[2021-07-09] MEDS: ASPIRIN EC 81 MG TABLET PO SCH (10:10)
[2021-07-09] MEDS: ZOLPIDEM 5 MG TABLET PO SCH (20:46)
[2021-07-09] MEDS: INSULIN GLARGINE 100 UNIT/ML SUBCUT SCH (20:47)
[2021-07-10 05:36] LABS: Basophils % 0.2 % (0.0-0.8); Eosinophils # 0.1 10*3/uL (0.0-0.87); Eosinophils % 1.5 % (0.00-10.9); Hematocrit 33.6 VOL% (42.0-52.0); Hemoglobin 10.5 GM/DL (14.0-18.0); Immature Granulocytes % 0.6 %; Immature Granulocytes Absolute 0.04 #; Lymphocytes # 0.8 10*3/uL (1.4-4.0); Mean Corpuscular HGB Conc 31.3 GM/DL (32-36); Mean Corpuscular Volume 96.6 FL (87-102); Monocytes # 0.6 10*3/uL (0.11-0.8); Monocytes % 9.1 % (1.7-12.7); Neutrophils % 75.6 % (38.7-73.9); Platelet Count 147 T/CUMM (130-400); Red Blood Count 3.48 MC/CUMM (3.8-5.5); Red Cell Distribution Width 16.4 % (9.3-17.3); White Blood Count 6.5 T/CUMM (4-12)
[2021-07-10 05:54] LABS: Potassium 3.6 MMOL/L (3.5-5.1)
[2021-07-10 06:34] LABS: Albumin 2.6 G/DL (3.4-5.0); Bilirubin,Direct 0.41 MG/DL (0.0-0.20); Bilirubin,Indirect 0.5 MG/DL (0.0-1.0); Bilirubin,Total 0.9 MG/DL (0.20-1.00); Total Protein 5.5 G/DL (6.4-8.2)
[2021-07-10] MEDS: INSULIN REGULAR 100 UNIT/ML SUBCUT SCH ×4 (08:08→20:27)
[2021-07-10] MEDS: SODIUM CHLORIDE 0.9% 1,000 ML IV SCH (08:35)
[2021-07-10] MEDS: LACTULOSE 20 GM/30 ML UDCUP PO SCH ×2 (10:03→20:27)
[2021-07-10] MEDS: ASCORBIC ACID 500 MG TABLET PO SCH (10:04)
[2021-07-10] MEDS: MEXILETINE 150 MG CAPSULE PO SCH ×2 (10:04→20:26)
[2021-07-10] MEDS: APIXABAN 5 MG TABLET PO SCH ×2 (10:04→20:27)
[2021-07-10] MEDS: methIMAzole 5 MG TABLET PO SCH (10:04)
[2021-07-10] MEDS: CHOLECALCIFEROL 1,000 UNIT TABLET PO SCH (10:05)
[2021-07-10] MEDS: AMIODARONE 200 MG TABLET PO SCH (10:05)
[2021-07-10] MEDS: ASPIRIN EC 81 MG TABLET PO SCH (10:05)
[2021-07-10] MEDS: METOPROLOL SUCCINATE XL 25 MG TABLET PO SCH (10:05)
[2021-07-10] MEDS: PANTOPRAZOLE 40 MG TABLET PO SCH (10:05)
[2021-07-10] MEDS: ZOLPIDEM 5 MG TABLET PO SCH (20:27)
[2021-07-10] MEDS: INSULIN GLARGINE 100 UNIT/ML SUBCUT SCH (20:50)
[2021-07-11 04:56] LABS: Basophils % 0.2 % (0.0-0.8); Eosinophils # 0.1 10*3/uL (0.0-0.87); Eosinophils % 0.7 % (0.00-10.9); Hematocrit 36.6 VOL% (42.0-52.0); Hemoglobin 11.4 GM/DL (14.0-18.0); Immature Granulocytes % 1.1 %; Immature Granulocytes Absolute 0.09 #; Lymphocytes # 1.2 10*3/uL (1.4-4.0); Lymphocytes % 14.6 % (21.2-54.2); Mean Corpuscular HGB Conc 31.1 GM/DL (32-36); Mean Corpuscular Volume 96.6 FL (87-102); Mean Platelet Volume 10.2 FL (9.6-12.0); Monocytes # 0.9 10*3/uL (0.11-0.8); Monocytes % 10.3 % (1.7-12.7); Neutrophils % 73.1 % (38.7-73.9); Platelet Count 172 T/CUMM (130-400); Red Blood Count 3.79 MC/CUMM (3.8-5.5); Red Cell Distribution Width 16.5 % (9.3-17.3); White Blood Count 8.3 T/CUMM (4-12)
[2021-07-11 05:17] LABS: Calcium 9.2 MG/DL (8.5-10.1); Osmolality,Calculated 287.7 MOS/KG (273-304); Potassium 3.7 MMOL/L (3.5-5.1)
[2021-07-11 08:23] VITALS: BP 131/70
[2021-07-11] MEDS ORDERED: AMIODARONE 200 MG TABLET PO SCH (09:00)
[2021-07-11] MEDS: ASPIRIN EC 81 MG TABLET PO SCH (09:07)
[2021-07-11] MEDS: PANTOPRAZOLE 40 MG TABLET PO SCH (09:08)
[2021-07-11] MEDS: METOPROLOL SUCCINATE XL 25 MG TABLET PO SCH (09:08)
[2021-07-11] MEDS: ASCORBIC ACID 500 MG TABLET PO SCH (09:08)
[2021-07-11] MEDS: APIXABAN 5 MG TABLET PO SCH (09:08)
[2021-07-11] MEDS: methIMAzole 5 MG TABLET PO SCH (09:08)
[2021-07-11] MEDS: CHOLECALCIFEROL 1,000 UNIT TABLET PO SCH (09:08)
[2021-07-11] MEDS: MEXILETINE 150 MG CAPSULE PO SCH (09:09)
[2021-07-11] MEDS: LACTULOSE 20 GM/30 ML UDCUP PO SCH (09:09)
[2021-07-11] MEDS: INSULIN REGULAR 100 UNIT/ML SUBCUT SCH (09:09)
== END 2021-07-11 11:11 | disposition hospice, home (50) | DRG 291 ==
LOC: N.ED 23:41 → N.EDINP 07-07 03:03 → SUATTDRO 07-07 03:03 → N.TELEN 07-07 04:27
PROVIDERS: ADMIT Internal Medicine; ATTEND Internal Medicine Geriatric Medicine